=== PATIENT | male | born 2000 | race Caucasian/White ===

== ENCOUNTER 2019-06-06 15:30 | Emergency (ER) | payer MEDICAID, SELFPAY ==
[2019-06-06 15:33] VITALS: BP 113/62; PULSE 77; RESP 20; TEMP 36.9; O2SAT 98
--- NOTE | 2019-06-06 15:58 | ED.GENADUL_ITS ---
Discharge Plan Disposition Patient Disposition: HOME Condition: Stable Discharge Details Chief Complaint: FacialProb Clinical Impression: Second branchial cleft cyst Primary Care Provider: None,None ED Provider: Barber Callejas Home Meds and New Rx's Prescriptions: New cephalexin 500 mg capsule 500 mg PO BID Qty: 14 RF: 0 sulfamethoxazole-trimethoprim [Bactrim DS] 800-160 mg tablet 1 tab PO Q12H Qty: 14 RF: 0 No Action methadone 40 mg Tablet,Soluble 95 mg PO DAILY RF: 0 Discharge Instructions Additional Instructions: follow up with general surgery, someone should contact you with an appointment if you have severe worsening pain or high fevers return to the emergency depar tment Medical Decision Making 18 yo male who denies chronic medical problems comes in with a lump on his left neck for a week. Denies fevers or chills or severe pain. Has never had this in the past. At the angle of the mandible and anterior to the sternocleidomastoid on the left is 3cm of swelling with mild erythema, no findings to suggest nec fasc and appears well so doubt sepsis. 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 Will start abx given some erythema and refer to general surgery to discuss excsiion. Return precautions given Differential Diagnosis abscess, brachial cleft anomaly HPI General Mode of arrival: ambulatory . Date/Time Provider Initiated Documentation: 06/06/19 15:38 . Limitations to Documentation: no limitations . Information obtained by: patient . History of Present Illness 18 year old M presents to the emergency department with the chief complaint of left face lump, described as moderate, Patient started experiencing this week(s) (1) and it has been constant. No relieving factors improve symptom(s), No exacerbating factors reported . Patient did receive the following treatments prior to arrival, none Related Data Home Medications Medication Instructions Recorded Confirmed cephalexin 500 mg PO BID #14 cap 06/06/19 methadone 95 mg PO DAILY 06/06/19 06/06/19 sulfamethoxazole-trimethoprim 1 tab PO Q12H #14 tab 06/06/19 [Bactrim DS] Previous Rx's Medication Instructions Recorded cephalexin 500 mg PO BID #14 cap 06/06/19 sulfamethoxazole-trimethoprim 1 tab PO Q12H #14 tab 06/06/19 [Bactrim DS] Allergies Allergy/AdvReac Type Severity Reaction Status Date / Time No Known Allergies Allergy Unverified 06/06/19 15:36 General Stated Complaint: FacialProb MUNIRA: 3 Review of Systems Review of Systems All systems reviewed & are unremarkable except as noted in HPI and below Constitutional Denies chills, Denies fever(s) and Denies weakness Cardiovascular Denies chest pain and Denies dyspnea Respiratory Denies cough and Denies dyspnea Gastrointestinal Denies abdominal pain, Denies nausea and Denies vomiting Musculoskeletal Denies joint swelling Neurologic Denies weakness Endocrine Denies heat intolerance PFSH Social History Smoking/Tobacco Use Status: Current every day Tobacco Type: cigarettes and smokeless tobacco Alcohol Intake: current Alcohol Intake frequency: holidays/special occasions only Drug use: Occasionally Substance use type: marijuana Do you feel safe at home: Yes Do you feel safe in your relationship?: Yes Exam Const General: no acute distress Orientation: alert HENMT Head: normal to inspection Ears: external ears normal General nose exam: external nose normal Mouth: moist mucous membranes Eyes General: appearance normal, both eyes and all related structures Neck Neck: full ROM Resp Effort & Inspection: normal respiratory effort and able to speak in complete sentences Cardio Rate: regular rate Skin General skin exam: elasticity normal Neuro General: alert and oriented x3 Extrem General: normal to inspection Psych Mental Status: mental status grossly normal Course Vital Signs Temperature 36.9 C 06/06/19 15:33 Pulse 77 06/06/19 15:33 Respiratory Rate 20 06/06/19 15:33 Blood Pressure 113/62 06/06/19 15:33 Pulse Oximetry 98 06/06/19 15:33 Temperature 36.9 C 06/06/19 15:33 Temperature Source Temporal Artery Scan 06/06/19 15:33 Pulse 77 06/06/19 15:33 Respiratory Rate 20 06/06/19 15:33 Respiratory Effort Non-Labored 06/06/19 15:37 Blood Pressure 113/62 06/06/19 15:33 Pulse Oximetry 98 06/06/19 15:33 Oxygen Delivery Method Room Air 06/06/19 15:33 Oxygen Flow Rate 0 06/06/19 15:33 Pain Level 5 06/06/19 15:33
[2019-06-06 16:13] VITALS: BP 113/62; PULSE 77; RESP 20; TEMP 36.9; O2SAT 98
--- NOTE | 2019-06-06 17:23 | NUR.NOTE ---
Nursing Note:Faxed referral to General Surgery for follow up. Also given referral to Care Management for establish care for PCP. Rossana Rhodes.
== END 2019-06-06 16:13 | disposition home or self-care (01) ==
PROVIDERS: Emergency Provider Emergency Medicine
DX: Q18.0 Sinus, fistula and cyst of branchial cleft (principal)
CPT/HCPCS: 99283

== ENCOUNTER 2019-06-24 00:52 | Outpatient (CLI) | payer MEDICAID, SELFPAY ==
--- NOTE | 2019-06-24 14:36 | DI.CT_ITS ---
EXAM: CT neck w CLINICAL HISTORY: NECK MASS, R22.1 TECHNIQUE: CT examination of the cervical region was performed with bolus infusion of 100 cc of Omni paque 350. COMPARISON: No exams were available for comparison FINDINGS: Visualized lung apices are clear. Visualized paranasal sinuses and mastoid air cells are clear. Orb ital and intracranial structures appear intact. The patient reportedly has a neck mass. CT shows a low-attenuation, well-circumscribed mass external to the parotid on the left measuring 35 x 24 x 13 millimeters in diameter. This is mildly heterogeneous in attenuation but averages near water density . No additional lesion identified. No cervical mass or adenopathy. No abnormality of the tracheal laryngeal structures. No vascular abnormality seen. Thyroid is unremarkable. Conclusion us solita ry well-circumscribed near water density mass external to the parotid gland on the left. I am uncert ain whether this originates within or extrinsic to the parotid. Additional evaluation with MRI of th is region including pre and post contrast examination is requested. IMPRESSION: Solitary, well circumscribed, near water density mass external to the parotid gland on the left. I am uncertain whether this originates within or extrinsic to the parotid. Additional evaluation with MRI of this region including pre and post contrast examination is requested.
== END 2019-06-24 01:12 ==
PROVIDERS: PCP Family Medicine; Visit Provider Surgery
DX: R22.1 Localized swelling, mass and lump, neck (principal); R93.89 Abnormal findings on diagnostic imaging of other specified body structures
CPT/HCPCS: 70491

== ENCOUNTER 2020-09-25 10:26 | Emergency (ER) | payer MEDICAID, SELFPAY ==
[2020-09-25 10:33] VITALS: BP 121/77; PULSE 62; RESP 18; TEMP 37.1; O2SAT 97
--- NOTE | 2020-09-25 10:45 | ED.GENADUL_ITS ---
Discharge Plan Disposition Patient Disposition: HOME Condition: Improving Discharge Details Clinical Impression: Acute bronchitis Primary Care Provider: Brooke Menendez ED Provider: Darrin Alfred Home Meds and New Rx's Prescriptions: New sulfamethoxazole-trimethoprim [Bactrim DS] 800-160 mg tablet 1 tab PO BID 7 Days Qty: 14 RF: 0 No Action methadone 40 mg Tablet,Soluble 110 mg PO DAILY RF: 0 Discharge Instructions Instructions: Acute Bronchitis (ED) Additional Instructions: Return if you develop difficulty breathing, vomiting, or any other acute concerns. Continue your efforts to decrease tobacco use. Our nursing staff will contact you with your COVID-19 results. Stand Alone Forms: Work Release Medical Decision Making 19-year-old male smoker presents with 3 days of cough, congestion, production of colored sputum. He has not had any GI symptoms, no significant shortness of breath and no known sick contacts or travel. Will obtain Covid test. This is consistent with bronchitis. His oxygenation is 100% and I do not appreciate wheezing or increased work of breathing. 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 Will treat for acute bronchitis with a course of antibiotics. He is stable and appropriate for outpatient management. HPI General Mode of arrival: ambulatory . Date/Time Provider Initiated Documentation: 09/25/20 10:27 . Limitations to Documentation: no limitations . Information obtained by: patient . History of Present Illness 19 year old M presents to the emergency department with the chief complaint of Cough and congestion for 3 days, described as moderate, Quality is described as dull, Patient reports no radiation. Patient started experiencing this day(s) and it has been intermittent. No relieving factors improve symptom(s), No exacerbating factors reported . Patient notes cough; denies fever/chills, nausea/vomiting, shortness of breath and syncope. Patient did receive the following treatments prior to arrival, none Related Data Home Medications Medication Instructions Recorded Confirmed methadone 110 mg PO DAILY 06/06/19 06/06/19 sulfamethoxazole-trimethoprim 1 tab PO BID 7 Days #14 tab 09/25/20 [Bactrim DS] Previous Rx's Medication Instructions Recorded sulfamethoxazole-trimethoprim 1 tab PO BID 7 Days #14 tab 09/25/20 [Bactrim DS] Allergies Allergy/AdvReac Type Severity Reaction Status Date / Time No Known Allergies Allergy Unverified 09/25/20 10:37 General Stated Complaint: RespSymp MUNIRA: 3 Review of Systems Narrative: Smokes 1 pack of cigarettes per day, positive production of sputum. No known sick contacts. No recent travel. 7 systems reviewed and were otherwise negative. [facility] Medical History Substance abuse Family History Maternal Grandfather Diabetes Hypertension Maternal Grandmother Lymphoma Colon cancer CA at age 58 Paternal Grandmother Hypertension Uterine cancer Social History Smoking/Tobacco Use Status: Current every day Tobacco Type: cigarettes and smokeless tobacco Tobacco: How many years used: 4 Smoking risk assessment performed?: Yes Alcohol Intake: current Alcohol Intake frequency: holidays/special occasions only Drug use: Occasionally Substance use type: marijuana Adopted: No Foster care: No Household members: family Number of Children: 0 Communication Needs: None Education Level: high school Details: sophomore current occupation: none Duration: > 90 minutes/day Frequency: daily Seatbelt use: never 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 Pleasant, well groomed, interactive. HEAD: Normocephalic, atraumatic ENT: Mucous membranes moist, oropharynx unremarkable, tympanic membranes clear and pearlescent bilaterally. External ear exam unremarkable EYES: PERRL, EOMI NECK: Full ROM, no SAUL, no menigismus CHEST/RESP: Nontender, clear to auscultation bilateral, no wheeze/rhonchi/rales, cough noted CARDIOVASCULAR: RRR, no murmur, rub lan. 2+ Rad pulse bilateral ABDOMEN: Soft, nontender, no mass. +Bowel sounds EXT: Full ROM, no edema, no rash Neuro: Grossly normal neurologic exam, conversant, interactive. Psych: Speech fluent, thoughts congruent, affect normal Course Vital Signs Vital signs: Vital Signs Temperature 37.1 C 09/25/20 10:33 Pulse 62 09/25/20 10:33 Respiratory Rate 18 09/25/20 10:33 Blood Pressure 121/77 09/25/20 10:33 Pulse Oximetry 97 09/25/20 10:33 Temperature 37.1 C 09/25/20 10:33 Temperature Source Temporal Artery Scan 09/25/20 10:33 Pulse 62 09/25/20 10:33 Respiratory Rate 18 09/25/20 10:33 Respiratory Effort Non-Labored 09/25/20 10:40 Respiratory Depth Normal 09/25/20 10:40 Blood Pressure 121/77 09/25/20 10:33 Blood Pressure Position Sitting 09/25/20 10:33 Pulse Oximetry 97 09/25/20 10:33 Oxygen Delivery Method Room Air 09/25/20 10:33 Oxygen Flow Rate 0 09/25/20 10:33 Pain Level 4 09/25/20 10:33
[2020-09-28 12:08] LABS: COVID-19 RT-PCR Result NEGATIVE (Negative)
--- NOTE | 2020-09-29 17:48 | NUR.NOTE ---
Gave patient is COVID test result: negative
== END 2020-09-25 10:57 | disposition home or self-care (01) ==
PROVIDERS: Emergency Provider Emergency Medicine; PCP Family Medicine
DX: J20.8 Acute bronchitis due to other specified organisms (principal); F17.210 Nicotine dependence, cigarettes, uncomplicated; Z03.818 Encounter for observation for suspected exposure to other biological agents ruled out
CPT/HCPCS: 99283; U0003

== ENCOUNTER 2022-03-06 18:05 | Emergency (ER) | payer OTHER, MEDICAID, SELFPAY ==
[2022-03-06 18:07] VITALS: BP 138/89; PULSE 142; RESP 16; TEMP 37.4; O2SAT 97
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
[2022-03-06] MEDS: Bacitracin 30 GM TUBE TP (18:54)
== END 2022-03-06 18:52 | disposition home or self-care (01) ==
PROVIDERS: Emergency Provider Physician Assistant; PCP Family Medicine
DX: T24.231A Burn of second degree of right lower leg, initial encounter (principal); X16.XXXA Contact with hot heating appliances, radiators and pipes, initial encounter; F11.23 Opioid dependence with withdrawal
CPT/HCPCS: 99283

== ENCOUNTER 2022-08-16 20:06 | Emergency (ER) | payer OTHER, MEDICAID, SELFPAY ==
[2022-08-16 20:28] VITALS: BP 138/98; PULSE 134; RESP 15; TEMP 37.3; O2SAT 98
--- NOTE | 2022-08-16 20:30 | RT.EKG_ITS ---
APPROVED REPORT Exam: Resting ECG Reason for Exam: nausea tachycardia Patient Location: E HR:127 bpm ECG Measurements Heart Rate 127 AXIS SC 153 P 84 QRSd 97 QRS 206 QT 309 T -33 QTc 450 Conclusion Sinus tachycardia...rate> 99 Right ventricular hypertrophy...prominent R or R' w/ RAD or TANA Probable lateral infarct, old...Q>35mS, abnormal ST-T, V5-6 I aVL
== END 2022-08-16 21:27 ==
LOC: ER 20:11
PROVIDERS: PCP Family Medicine
DX: Z53.21 Procedure and treatment not carried out due to patient leaving prior to being seen by health care provider (principal)
CPT/HCPCS: 93005; 93010

== ENCOUNTER 2023-01-28 16:49 | Emergency (ER) | payer OTHER, MEDICAID, SELFPAY ==
--- NOTE | 2023-01-28 16:52 | ED.GENADUL_ITS ---
Discharge Plan Disposition Patient Disposition: Home Condition: Good Discharge Details Clinical Impression: Ankle fracture, lateral malleolus, closed Primary Care Provider: Brooke Menendez ED Provider: Wenceslao Walls Meds and New Rx's Prescriptions: No Action methadone 40 mg Tablet,Soluble 110 mg PO DAILY Discharge Instructions Instructions: Ankle Fracture (ED) Additional Instructions: You were seen in the ED after injuring your left ankle last night. X-rays suggest a nondisplaced fracture of the distal lateral malleolus. You have been placed in a walking boot but should be nonweightbearing on crutches until follow-up with orthopedics. Please keep your leg elevated. Continue ice on and off rest of the weekend. Alternate with acetaminophen and ibuprofen every 4 hours. Call orthopedics Monday for follow-up. Return to ED for significantly worsening pain, swelling, numbness, weakness. Referrals: [facility] [Provider Group] - 1 week Medical Decision Making Patient with left ankle/foot injury that occurred around 9 PM last night. Despite elevation, ice, [id number] pain medicine he is still unable to ambulate because of pain. Will obtain x-ray of the left ankle and foot. X-rays per my review and preliminary radiology read suggest nondisplaced lateral malleolus fracture. Patient will be placed in a walking boot and made nonweightbearing until follow-up with orthopedics. Return precautions provided. HPI General Mode of arrival: ambulatory (w crutches) . Date/Time Provider Initiated Documentation: 01/28/23 16:52 . Limitations to Documentation: no limitations . Information obtained by: patient . HPI Narrative: Patient presents to ED with complaint of left ankle pain since a slip and fall last night. Patient denies injury elsewhere. Has been icing it and using crutches but has pain, swelling, inability to ambulate. Patient denies head injury, neck injury, chest injury. He has no numbness or weakness to the foot but has significant pain when attempting to move his foot or toes. Related Data Home Medications Medication Instructions Recorded Confirmed methadone 40 mg soluble tablet 110 mg PO DAILY 06/06/19 01/28/23 Allergies Allergy/AdvReac Type Severity Reaction Status Date / Time No Known Allergies Allergy Unverified 01/28/23 16:56 General MUNIRA: 3 Review of Systems Narrative: per HPI PFSH All Active Problems (Updated 01/28/23 @ 17:47 by Wenceslao Walls MD) Ankle fracture, lateral malleolus, closed (Acute) Branchial cleft cyst (Acute) Medical History Substance abuse Family History Maternal Grandfather Diabetes Hypertension Maternal Grandmother Lymphoma Colon cancer CA at age 58 Paternal Grandmother Hypertension Uterine cancer Social History Smoking/Tobacco Use Status: Current every day Tobacco Type: cigarettes and smokeless tobacco Tobacco: How many years used: 4 Smoking risk assessment performed?: Yes Alcohol Intake: current Alcohol Intake frequency: holidays/special occasions only Drug use: Occasionally Substance use type: marijuana Adopted: No Foster care: No Household members: family Number of Children: 0 Communication Needs: None Education Level: high school Details: sophomore current occupation: none Duration: > 90 minutes/day Frequency: daily Seatbelt use: never Drive intox or ride 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 HEENT: NC/AT. Normal facial exam. Neck: Supple. Trachea midline. Lungs: Normal respiratory effort. Cor: RRR. Good distal pulses. Neuro: A+O x 3. Normal speech, mentation, gait. Cranial nerves II - XII gr ossly intact. No gross motor or sensory deficit. Ext: No C/C/E. Left ankle with marked swelling and tenderness both malleoli. Good DP and PT pulses. No swelling of the foot but pain present in the foot laterally. Skin: Warm and dry without rash.
[2023-01-28 16:53] VITALS: BP 146/93; PULSE 124; RESP 18; TEMP 36.7; O2SAT 97
--- NOTE | 2023-01-28 17:00 | DI.RAD_ITS ---
Exam(s) XR FOOT LT COMPLETE XR ANKLE LT COMPLETE EXAM: XR ANKLE LT COMPLETE CLINICAL HISTORY: trauma TECHNIQUE: 2D digital imaging was performed. Three views. COMPARISON: CR,XR XR FOOT LT COMPLETE from 01/28/2023 FINDINGS: BONES: Nondisplaced fractures. Extending transversely through the lateral malleolus. No additional fractures seen in the ankle or foot. No bony destructive lesion is seen. JOINTS:The ankle mortise is normally aligned. SOFT TISSUE: Marked soft tissue swelling in at the lateral malleolus.. IMPRESSION: Nondisplaced fracture of the lateral malleolus. DATA REPOSITORY: RADIATION DOSE DELIVERED:
--- NOTE | 2023-01-28 17:37 | DI.VRAD_ITS ---
PROCEDURE INFORMATION: Exam: XR Left Ankle Exam date and time: 01/28/2023 5:21 PM Age: 22 years old Clinical indication: Other: Trauma TECHNIQUE: Imaging protocol: Radiologic exam of the left ankle. Views: 3 or more views. COMPARISON: No relevant prior studies available. FINDINGS: Bones/joints: Nondisplaced fracture lateral malleolus. The ankle mortise is intact. No dislocation. Soft tissues: Moderate soft tissue edema. IMPRESSION: Nondisplaced fracture lateral malleolus. Dictated and Authenticated by: Estrada Arellano MD. Ordering:SHELIA Billy MD
--- NOTE | 2023-01-28 17:37 | DI.VRAD_ITS ---
PROCEDURE INFORMATION: Exam: XR Left Foot Exam date and time: 01/28/2023 5:23 PM Age: 22 years old Clinical indication: Other: Trauma TECHNIQUE: Imaging protocol: Radiologic exam of the left foot. Views: 3 or more views. COMPARISON: CR XR ANKLE LT COMPLETE 01/28/2023 5:21 PM FINDINGS: Bones/joints: The bones and joints of the foot are unremarkable. Soft tissues: Unremarkable. IMPRESSION: No acute findings. Dictated and Authenticated by: Estrada Arellano MD. Ordering:SHELIA Billy MD
== END 2023-01-28 18:02 | disposition home or self-care (01) ==
PROVIDERS: Emergency Provider Emergency Medicine; PCP Family Medicine
DX: S82.65XA Nondisplaced fracture of lateral malleolus of left fibula, initial encounter for closed fracture (principal); W01.0XXA Fall on same level from slipping, tripping and stumbling without subsequent striking against object, initial encounter
CPT/HCPCS: 99283; 73610; 73630

== ENCOUNTER 2024-04-18 04:03 | Emergency (ER) | payer OTHER, MEDICAID, SELFPAY ==
--- NOTE | 2024-04-18 07:18 | NUR.NOTE ---
Nursing Note: downtime chart, see downtime documentation
== END 2024-04-18 07:19 ==
LOC: ER 07:18
PROVIDERS: Emergency Provider Student in an Organized Health Care Education/Training Program; PCP Family Medicine
DX: L02.411 Cutaneous abscess of right axilla (principal); G56.91 Unspecified mononeuropathy of right upper limb
CPT/HCPCS: 99283